=== PATIENT | female | born 1980 | race American Indian/Alaskan Native ===

== ENCOUNTER 2020-04-30 08:28 | Observation (INO) | payer MEDICAID ==
[2020-04-30 09:52] LABS: Hematocrit 27.8 % (30.3-42.9); Hemoglobin 9.3 gm/dl (10.1-14.3); Mean Corpuscular HGB Conc 33 % (30-34); Mean Corpuscular Volume 82 fl (79-97); Platelet Count 301 K/mm3 (140-440); Red Blood Count 3.41 M/mm3 (3.65-5.03)
[2020-04-30 09:55] LABS: Red Cell Distribution Width 20.2 % (13.2-15.2)
[2020-04-30 10:08] LABS: Creatine Kinase MB 2.5 ng/mL (0.0-4.0)
[2020-04-30 10:09] LABS: Blood Urea Nitrogen 15 mg/dL (7-17); Calcium 8.8 mg/dL (8.4-10.2); Hemolysis Index 3
--- NOTE | 2020-04-30 10:10 | XRay Report ---
CHEST 1 VIEW INDICATION: Dyspnea COMPARISON: None FINDINGS: SUPPORT DEVICES: None. HEART / MEDIASTINUM: No significant abnormality. LUNGS / PLEURA: Patchy parenchymal changes present both lower lobes small bilateral pleural effusions No pneumothorax. ADDITIONAL FINDINGS: IMPRESSION: 1. Patchy parenchymal changes lower lobes with bilateral pleural effusions, subsegmental atelectasis is a concern Signer Name: Terry Pina MD Signed: 04/30/2020 10:06 AM Workstation Name: [id number]
[2020-04-30 10:17] LABS: BUN/Creatinine Ratio 25
[2020-04-30 10:45] LABS: INR > 17.67 (0.87-1.13); Partial Thromboplastin Time > 240.0 Sec. (24.2-36.6)
[2020-04-30 10:48] LABS: Total Cells Counted 100
[2020-04-30 10:49] LABS: Anisocytosis 1+; Basophils % (Manual) 0 % (0.0-1.8); Platelet Estimate Consistent w Auto
--- NOTE | 2020-04-30 11:14 | Cat Scan Report ---
CTA CHEST WITH IV CONTRAST INDICATION / CLINICAL INFORMATION: MAIN. TECHNIQUE: Axial CT images were obtained through the chest after injection of 100 cc Omnipaque 350 milligrams pe rcent IV contrast. 3 plane MIP and/or 3D reconstructions were produced. All CT scans at this location are performed using CT dose reduction for ALARA by means of automated exposure control. COMPARISON: None available. FINDINGS: PULMONARY ARTERIES: No pulmonary emboli. THORACIC AORTA: No significant abnormality. HEART: No significant abnormality. CORONARY ARTERIES: No significant calcification. PLEURA: No pleural effusion. Bilateral pleural effusions [id number] in size: No significant ad enopathy. LUNGS: Interstitium is prominent with patchy airspace changes right lung more severe effected than le ft ADDITIONAL FINDINGS: None. UPPER ABDOMEN: No acute findings. SKELETAL STRUCTURES: No significant osseous abnormality. IMPRESSION: 1. No CT evidence for pulmonary embolism. 2. Patchy parenchymal changes both lungs right greater than left with increased interstitium with ass ociated bilateral pleural effusions, pulmonary edema is a concern. Inflammatory process can have a si milar appearance. Signer Name: Terry Pina MD Signed: 04/30/2020 11:09 AM Workstation Name: [id number]
--- NOTE | 2020-04-30 11:20 | Emergency Department Report ---
ED General Adult HPI - General Chief complaint: Dyspnea/Respdistress Stated complaint: DIFFICULTY BREATING Source: patient Mode of arrival: Ambulatory Limitations: No Limitations - History of Present Illness Initial comments: This is a very pleasant 39-year-old lady who had a 1 week ago. She describes her as uneventful and without complication. She states that on Thursday she began to get short of breath and experienced anterior non- radiating nonpleuritic chest tightness. She has not been coughing. She has noticed for the past several days that her legs have been swollen. She states that she felt like there was swelling of her "hips" in the hospital. Over the weekend she has developed substantial pedal edema. She does not complain of leg pain per se or any asymmetrical swelling. She has no personal history of VTE or family history thereof. -: Gradual Location: chest Radiation: non-radiation Quality: other (Tightness) Consistency: intermittent Improves with: none Worsens with: none Associated Symptoms: denies other symptoms, shortness of breath Treatments Prior to Arrival: none - Related Data Allergies Allergy/AdvReac Type Severity Reaction Status Date / Time No Known Allergies Allergy Unverified 04/30/20 12:41 ED Review of Systems ROS: Stated complaint: DIFFICULTY BREATING Other details as noted in HPI Constitutional: denies: chills, fever Eyes: denies: eye pain, eye discharge, vision change ENT: denies: ear pain, throat pain Respiratory: shortness of breath. denies: cough, wheezing Cardiovascular: chest pain. denies: palpitations Endocrine: no symptoms reported Gastrointestinal: denies: abdominal pain, nausea, diarrhea Genitourinary: denies: urgency, dysuria, discharge Musculoskeletal: denies: back pain, joint swelling, arthralgia Skin: denies: rash, lesions Neurological: denies: headache, weakness, paresthesias Psychiatric: denies: anxiety, depression Hematological/Lymphatic: denies: easy bleeding, easy bruising ED Past Medical Hx - Past Medical History Previous Medical History?: Yes Hx Asthma: Yes - Surgical History Additional Surgical History: x2 without complication. - Social History Substance Use Type: None ED Physical Exam - General Limitations: No Limitations General appearance: alert, in no apparent distress - Head Head exam: Present: atraumatic, normocephalic - Eye Eye exam: Present: normal appearance. Absent: scleral icterus - ENT ENT exam: Present: mucous membranes moist - Neck Neck exam: Present: normal inspection. Absent: tenderness, meningismus - Respiratory Respiratory exam: Present: normal lung sounds bilaterally. Absent: respiratory distress - Cardiovascular Cardiovascular Exam: Present: regular rate, normal rhythm. Absent: systolic mur mur, diastolic murmur, rubs, gallop - GI/Abdominal GI/Abdominal exam: Present: soft, normal bowel sounds. Absent: tenderness, guarding, rebound, rigid - Extremities Exam Extremities exam: Present: normal capillary refill, other (2-3+ pedal edema). Absent: calf tenderness - Back Exam Back exam: Present: normal inspection - Neurological Exam Neurological exam: Present: alert, oriented X3, CN II-XII intact. Absent: motor sensory deficit - Psychiatric Psychiatric exam: Present: normal affect, normal mood - Skin Skin exam: Present: warm, dry, intact, normal color. Absent: rash ED Course Vital Signs 04/30/20 04/30/20 08:33 12:00 Temperature 98.8 F Pulse Rate 54 L Respiratory 20 16 Rate Blood Pressure 144/73 [Right] O2 Sat by Pulse 98 Oximetry - Reevaluation(s) Reevaluation #1: On repeat examination patient's pulse oximetry is 99% on room air. She states that she is breathing better after Lasix. Her blood pressure is normal. I have ordered an echocardiogram on the patient and a cardiology consultation. I am going to place the patient on COVID precautions and obtain associated laboratory database. I do not think it is at all likely that the patient has COVID. This is a pure precaution. 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 I have discussed the case with Dr. Tobin. The patient is admitted to the ostal service. 04/30/20 14:07 ED Medical Decision Making - Lab Data Result diagrams: 04/30/20 09:19 04/30/20 12:35 Critical care attestation.: If time is entered above; I have spent that time in minutes in the direct care of this critically ill patient, excluding procedure time. ED Disposition Clinical Impression: cardiomyopathy, Status post Congestive heart failure Qualifiers: Heart failure type: combined systolic and diastolic Heart failure chronicity: a cute Qualified Code(s): I50.41 - Acute combined systolic (congestive) and d iastolic (congestive) heart failure Anemia Qualifiers: Anemia type: unspecified type Qualified Code(s): D64.9 - Anemia, unspecified Chest pain Qualifiers: Chest pain type: unspecified Qualified Code(s): R07.9 - Chest pain, unspecified Disposition: OP ADMIT IP TO THIS HOSP Is pt being admited?: Yes Does the pt Need Aspirin: Yes Condition: Stable Instructions: Chest Pain (ED) Referrals: PRIMARY CARE,MD [Primary Care Provider] - 3-5 Days Time of Disposition: 14:10
[2020-04-30 11:40] LABS: INR 1.02 (0.87-1.13)
[2020-04-30 11:41] LABS: Partial Thromboplastin Time 28.9 Sec. (24.2-36.6)
[2020-04-30] MEDS ORDERED: FUROSEMIDE 40 MG/4 ML INJ IV ONE (12:06)
[2020-04-30 13:24] LABS: Creatine Kinase MB 2.3 ng/mL (0.0-4.0)
[2020-04-30 13:26] LABS: Alanine Aminotransferase 99 units/L (7-56); Albumin 3.1 g/dL (3.9-5)
[2020-04-30 13:38] LABS: Bilirubin,Direct < 0.2 mg/dL (0-0.2)
[2020-04-30] MEDS ORDERED: ASPIRIN 325 MG TAB ONE (16:46)
[2020-04-30] MEDS: ASPIRIN 325 MG TAB PO SCH (16:50)
[2020-04-30] MEDS ORDERED: ONDANSETRON 4 MG/2 ML INJ IV PRN (22:50)
[2020-04-30] MEDS ORDERED: ACETAMINOPHEN 325 MG TAB PO PRN (22:50)
[2020-04-30] MEDS ORDERED: HYDROmorphone 1 MG/1 ML INJ IV PRN (22:50)
[2020-04-30] MEDS ORDERED: oxyCODONE /ACETAMINOPHEN 5-325MG TAB PO PRN (22:50)
--- NOTE | 2020-04-30 22:50 | History and Physical Report ---
History of Present Illness Date of examination: 04/30/20 Date of admission: 04/30/20 14:12 Chief complaint: Shortness of breath for 2 days History of present illness: 39-year-old female with no significant past medical history except for asthma comes in for increasing shortness of breath since 2 days. Patient had a C- section 1 week ago.. Patient has dyspnea on minimal exertion and has orthopnea. No past medical history of hypertension or CHF. No fever or chills. Patient states that she has swelling of the legs for the past 1 week and increased weight gain secondary to fluid retention. No fever or chills. No exposure to coronavirus. - Past Medical History Previous Medical History?: Yes Hx Asthma: Yes - Surgical History Additional Surgical History: x2 without complication. - Social History Substance Use Type: None -family history Htn Review of Systems ROS: Stated complaint: DIFFICULTY BREATING Other details as noted in HPI Constitutional: denies: chills, fever Eyes: denies: eye pain, eye discharge, vision change ENT: denies: ear pain, throat pain Respiratory: shortness of breath on minimal exertion and orthopnea.. denies: cough, wheezing Cardiovascular: chest pain. denies: palpitations Endocrine: no symptoms reported Gastrointestinal: denies: abdominal pain, nausea, diarrhea Genitourinary: denies: urgency, dysuria, discharge Musculoskeletal: denies: back pain, joint swelling, arthralgia Skin: denies: rash, lesions Neurological: denies: headache, weakness, paresthesias Psychiatric: denies: anxiety, depression Hematological/Lymphatic: denies: easy bleeding, easy bruising Medications and Allergies Allergies Allergy/AdvReac Type Severity Reaction Status Date / Time No Known Allergies Allergy Unverified 04/30/20 12:41 Active Meds: Active Medications Aspirin (Aspirin) 325 mg PO QDAY ANIRUDH Last Admin: 04/30/20 16:50 Dose: 325 mg Documented by: Exam - Constitutional Vitals: Temp Pulse Resp BP Pulse Ox 98.5 F 65 18 128/65 100 04/30/20 13:00 04/30/20 14:01 04/30/20 20:37 04/30/20 14:01 04/30/20 14:01 General appearance: Present: mild distress, well-nourished - EENT Eyes: Present: PERRL ENT: hearing intact, clear oral mucosa - Neck Neck: Present: supple, normal ROM - Respiratory Respiratory effort: normal Respiratory: bilateral: CTA, rales (Basal), rhonchi - Cardiovascular Heart rate: 98 Rhythm: regular Heart Sounds: Present: S1 & S2. Absent: rub, click - Extremities Extremities: pulses symmetrical Extremity abnormal: other (About 2-3+ pedal edema present) Peripheral Pulses: within normal limits - Abdominal General gastrointestinal: Present: soft, non-tender, non-distended, normal bowel sounds Female genitourinary: Present: normal - Integumentary Integumentary: Present: clear, warm, dry - Musculoskeletal Musculoskeletal: gait normal, strength equal bilaterally - Psychiatric Psychiatric: appropriate mood/affect, intact judgment & insight - Neurologic Neurologic: CNII-XII intact, moves all extremities - Allied Health Allied health notes reviewed: nursing, case management HEART Score - HEART Score History: Moderately suspicious Risk factors: No known risk factors Troponin: Troponin T < 0.010 ng/mL (0.00-0.029) 04/30/20 12:35 Troponin: < normal limit - Critical Actions Critical Actions: 4-6 pts:12-16.6% risk of adverse cardiac event. Should be admitted Results - Labs CBC & Chem 7: 04/30/20 09:19 04/30/20 12:35 Labs: Laboratory Last Values WBC 7.3 K/mm3 (4.5-11.0) 04/30/20 09:19 RBC 3.41 M/mm3 (3.65-5.03) L 04/30/20 09:19 Hgb 9.3 gm/dl (10.1-14.3) L 04/30/20 09:19 Hct 27.8 % (30.3-42.9) L 04/30/20 09:19 MCV 82 fl (79-97) 04/30/20 09:19 MCH 27 pg (28-32) L 04/30/20 09:19 MCHC 33 % (30-34) 04/30/20 09:19 RDW 20.2 % (13.2-15.2) H 04/30/20 09:19 Plt Count 301 K/mm3 (140-440) 04/30/20 09:19 Add Manual Diff Complete 04/30/20 09:19 Total Counted 100 04/30/20 09:19 Seg Neuts % (Manual) 86.0 % (40.0-70.0) H 04/30/20 09:19 Band Neutrophils % 0 % 04/30/20 09:19 Lymphocytes % (Manual) 9.0 % (13.4-35.0) L 04/30/20 09:19 Reactive Lymphs % (Man) 0 % 04/30/20 09:19 Monocytes % (Manual) 2.0 % (0.0-7.3) 04/30/20 09:19 Eosinophils % (Manual) 3.0 % (0.0-4.3) 04/30/20 09:19 Basophils % (Manual) 0 % (0.0-1.8) 04/30/20 09:19 Metamyelocytes % 0 % 04/30/20 09:19 Myelocytes % 0 % 04/30/20 09:19 Promyelocytes % 0 % 04/30/20 09:19 Blast Cells % 0 % 04/30/20 09:19 Nucleated RBC % Not Reportable 04/30/20 09:19 Seg Neutrophils # Man 6.3 K/mm3 (1.8-7.7) 04/30/20 09:19 Band Neutrophils # 0.0 K/mm3 04/30/20 09:19 Lymphocytes # (Manual) 0.7 K/mm3 (1.2-5.4) L 04/30/20 09:19 Abs React Lymphs (Man) 0.0 K/mm3 04/30/20 09:19 Monocytes # (Manual) 0.1 K/mm3 (0.0-0.8) 04/30/20 09:19 Eosinophils # (Manual) 0.2 K/mm3 (0.0-0.4) 04/30/20 09:19 Basophils # (Manual) 0.0 K/mm3 (0.0-0.1) 04/30/20 09:19 Metamyelocytes # 0.0 K/mm3 04/30/20 09:19 Myelocytes # 0.0 K/mm3 04/30/20 09:19 Promyelocytes # 0.0 K/mm3 04/30/20 09:19 Blast Cells # 0.0 K/mm3 04/30/20 09:19 WBC Morphology Not Reportable 04/30/20 09:19 Hypersegmented Neuts Not Reportable 04/30/20 09:19 Hyposegmented Neuts Not Reportable 04/30/20 09:19 Hypogranular Neuts Not Reportable 04/30/20 09:19 Smudge Cells Not Reportable 04/30/20 09:19 Toxic Granulation Not Reportable 04/30/20 09:19 Toxic Vacuolation Not Reportable 04/30/20 09:19 Dohle Bodies Not Reportable 04/30/20 09:19 Pelger-Huet Anomaly Not Reportable 04/30/20 09:19 Trina Rods Not Reportable 04/30/20 09:19 Platelet Estimate Consistent w auto 04/30/20 09:19 Clumped Platelets Not Reportable 04/30/20 09:19 Plt Clumps, EDTA Not Reportable 04/30/20 09:19 Large Platelets Not Reportable 04/30/20 09:19 Giant Platelets Not Reportable 04/30/20 09:19 Platelet Satelliting Not Reportable 04/30/20 09:19 Plt Morphology Comment Not Reportable 04/30/20 09:19 RBC Morphology Not Reportable 04/30/20 09:19 Dimorphic RBCs Not Reportable 04/30/20 09:19 Polychromasia Few 04/30/20 09:19 Hypochromasia Not Reportable 04/30/20 09:19 Poikilocytosis Not Reportable 04/30/20 09:19 Anisocytosis 1+ 04/30/20 09:19 Microcytosis Not Reportable 04/30/20 09:19 Macrocytosis Not Reportable 04/30/20 09:19 Spherocytes Not Reportable 04/30/20 09:19 Pappenheimer Bodies Not Reportable 04/30/20 09:19 Sickle Cells Not Reportable 04/30/20 09:19 Target Cells Not Reportable 04/30/20 09:19 Tear Drop Cells Not Reportable 04/30/20 09:19 Ovalocytes Not Reportable 04/30/20 09:19 Helmet Cells Not Reportable 04/30/20 09:19 Chahal-Paul Bodies Not Reportable 04/30/20 09:19 [place] Rings Not Reportable 04/30/20 09:19 [place] Cells Not Reportable 04/30/20 09:19 Bite Cells Not Reportable 04/30/20 09:19 Crenated Cell Not Reportable 04/30/20 09:19 Elliptocytes Not Reportable 04/30/20 09:19 Acanthocytes (Spur) Not Reportable 04/30/20 09:19 Rouleaux Not Reportable 04/30/20 09:19 Hemoglobin C Crystals Not Reportable 04/30/20 09:19 Schistocytes Not Reportable 04/30/20 09:19 Malaria parasites Not Reportable 04/30/20 09:19 Emil Bodies Not Reportable 04/30/20 09:19 Hem Pathologist Commnt No 04/30/20 09:19 PT 13.5 Sec. (12.2-14.9) 04/30/20 10:54 INR 1.02 (0.87-1.13) 04/30/20 10:54 APTT 28.9 Sec. (24.2-36.6) 04/30/20 10:54 D-Dimer 3888.41 ng/mlDDU (0-234) H 04/30/20 12:35 Sodium 140 mmol/L (137-145) 04/30/20 09:19 Potassium 4.4 mmol/L (3.6-5.0) 04/30/20 09:19 Chloride 106.9 mmol/L (98-107) 04/30/20 09:19 Carbon Dioxide 18 mmol/L (22-30) L 04/30/20 09:19 Anion Gap 20 mmol/L 04/30/20 09:19 BUN 15 mg/dL (7-17) 04/30/20 09:19 Creatinine 0.6 mg/dL (0.6-1.2) 04/30/20 09:19 Estimated GFR > 60 ml/min 04/30/20 09:19 BUN/Creatinine Ratio 25 % 04/30/20 09:19 Glucose 83 mg/dL (65-100) 04/30/20 12:35 Calcium 8.8 mg/dL (8.4-10.2) 04/30/20 09:19 Magnesium 2.20 mg/dL (1.7-2.3) 04/30/20 12:35 Ferritin 31.5 ng/mL (10.0-200.0) 04/30/20 12:35 Total Bilirubin 0.20 mg/dL (0.1-1.2) 04/30/20 12:35 Direct Bilirubin < 0.2 mg/dL (0-0.2) 04/30/20 12:35 Indirect Bilirubin 0.0 mg/dL 04/30/20 12:35 AST 54 units/L (5-40) H 04/30/20 12:35 ALT 99 units/L (7-56) H 04/30/20 12:35 Alkaline Phosphatase 119 units/L (35-129) 04/30/20 12:35 Lactate Dehydrogenase 450 units/L (91-180) H 04/30/20 12:35 Total Creatine Kinase 114 units/L (30-135) 04/30/20 12:35 CK-MB (CK-2) 2.3 ng/mL (0.0-4.0) 04/30/20 12:35 CK-MB (CK-2) Rel Index 2.0 (0-4) 04/30/20 12:35 Troponin T < 0.010 ng/mL (0.00-0.029) 04/30/20 12:35 C-Reactive Protein 4.60 mg/dL (0.00-1.30) H 04/30/20 12:35 NT-Pro-B Natriuret Pep 537.9 pg/mL (0-450) H 04/30/20 09:19 Total Protein 6.4 g/dL (6.3-8.2) 04/30/20 12:35 Albumin 3.1 g/dL (3.9-5) L 04/30/20 12:35 Albumin/Globulin Ratio 0.9 % 04/30/20 12:35 Procalcitonin < 0.05 ng/mL (<0.15) 04/30/20 12:35 Blood Type A POSITIVE 04/30/20 09:15 Antibody Screen Negative 04/30/20 09:15 Short CBC 04/30/20 Range/Units 09:19 WBC 7.3 (4.5-11.0) K/mm3 Hgb 9.3 L (10.1-14.3) gm/dl Hct 27.8 L (30.3-42.9) % Plt Count 301 (140-440) K/mm3 BMP 04/30/20 04/30/20 09:19 12:35 Sodium 140 Potassium 4.4 Chloride 106.9 Carbon Dioxide 18 L BUN 15 Creatinine 0.6 Glucose 82 83 Calcium 8.8 Cardiac Enzymes 04/30/20 04/30/20 04/30/20 Range/Units 09:19 09:19 12:35 Total Creatine Kinase 128 114 (30-135) units/L CK-MB (CK-2) 2.5 2.3 (0.0-4.0) ng/mL Troponin T < 0.010 < 0.010 (0.00-0.029) ng/mL Liver Function 04/30/20 Range/Units 12:35 Total Bilirubin 0.20 (0.1-1.2) mg/dL Direct Bilirubin < 0.2 (0-0.2) mg/dL AST 54 H (5-40) units/L ALT 99 H (7-56) units/L Alkaline Phosphatase 119 (35-129) units/L Albumin 3.1 L (3.9-5) g/dL - Imaging and Cardiology EKG: report reviewed Imaging and Cardiology: CXR IMPRESSION: 1. Patchy parenchymal changes lower lobes with bilateral pleural effusions, subsegmental atelectasis is a concern Signer Name: Terry Pina MD Signed: 04/30/2020 10:06 AM CTA IMPRESSION: 1. No CT evidence for pulmonary embolism. 2. Patchy parenchymal changes both lungs right greater than left with increased interstitium with associated bilateral pleural effusions, pulmonary edema is a concern. Inflammatory process can have a similar appearance. Chao/IV: IV Catheter Type [Left Peripheral IV Antecubital] Assessment and Plan Advance Directives: Yes (Full code) Plan of care discussed with patient/family: Yes - Patient Problems (1) cardiomyopathy Current Visit: Yes Status: Acute Plan to address problem: Echocardiogram done report is pending Possible post cardiomyopathy Ejection fraction percentage is pending (2) Acute exacerbation of CHF (congestive heart failure) Current Visit: Yes Status: Acute Qualifiers: Heart failure type: combined systolic and diastolic Qualified Code(s): I50.43 - Acute on chronic combined systolic (congestive) and diastolic (congestive) heart failure Plan to address problem: Clinically patient has CHF exacerbation and it is new onset Patient started on IV Lasix Echocardiogram done Cardiology consult (3) Anemia Current Visit: Yes Status: Chronic Qualifiers: Anemia type: unspecified type Qualified Code(s): D64.9 - Anemia, unspecified Plan to address problem: Anemia work-up (4) Elevated d-dimer Current Visit: Yes Status: Acute Plan to address problem: Weight-based Lovenox 40 mg every 12 (5) Malnutrition Current Visit: Yes Status: Chronic Qualifiers: Protein-calorie malnutrition severity: moderate Plan to address problem: Dietary supplements ordered (6) Transaminitis Current Visit: Yes Status: Acute Plan to address problem: Possibly secondary to hepatic congestion Check hepatitis profile (7) Person under investigation for COVID-19 Current Visit: Yes Status: Acute Plan to address problem: Coronavirus PCR ordered even though it is unlikely (8) DVT prophylaxis Current Visit: Yes Status: Acute Plan to address problem: Patient on Lovenox and GI prophylaxis
[2020-04-30] MEDS ORDERED: POTASSIUM CHLORIDE ER 20 MEQ TAB PO ONE (22:52)
[2020-05-01] MEDS: FUROSEMIDE 40 MG/4 ML INJ IV SCH ×2 (05:25→17:20)
[2020-05-01 06:20] LABS: Basophils % (Auto) 0.5 % (0.0-1.8); Eosinophils # (Auto) 0.2 K/mm3 (0.0-0.4); Eosinophils % (Auto) 3.9 % (0.0-4.3); Hematocrit 28.1 % (30.3-42.9); Hemoglobin 9.3 gm/dl (10.1-14.3); Lymphocytes # (Auto) 1.6 K/mm3 (1.2-5.4); Lymphocytes % (Auto) 24.7 % (13.4-35.0); Mean Corpuscular HGB Conc 33 % (30-34); Mean Corpuscular Volume 82 fl (79-97); Monocytes # (Auto) 0.4 K/mm3 (0.0-0.8); Monocytes % (Auto) 6.8 % (0.0-7.3); Platelet Count 343 K/mm3 (140-440); Red Blood Count 3.45 M/mm3 (3.65-5.03)
[2020-05-01 06:21] LABS: Red Cell Distribution Width 20.1 % (13.2-15.2)
[2020-05-01] MEDS: ENOXAPARIN 40 MG/0.4 ML INJ SUB-Q SCH ×2 (06:34→21:25)
[2020-05-01 06:45] LABS: Alanine Aminotransferase 94 units/L (7-56); Albumin 3.1 g/dL (3.9-5); Blood Urea Nitrogen 15 mg/dL (7-17); Calcium 8.6 mg/dL (8.4-10.2); Hemolysis Index 14
[2020-05-01 07:21] LABS: BUN/Creatinine Ratio 21
--- NOTE | 2020-05-01 08:33 | Progress Note ---
Assessment and Plan Assessment and plan: cardiomyopathy Echocardiogram done report is pending Possible post cardiomyopathy Ejection fraction percentage is pending Acute exacerbation of CHF (congestive heart failure) Clinically patient has CHF exacerbation and it is new onset Cont. IV Lasix Echocardiogram done Cardiology consulted Anemia Anemia work-up Elevated d-dimer Weight-based Lovenox 40 mg every 12 Malnutrition Dietary supplements ordered Transaminitis Possibly secondary to hepatic congestion Check hepatitis profile Person under investigation for COVID-19 Coronavirus PCR ordered even though it is unlikely DVT prophylaxis Patient on Lovenox and GI prophylaxis History Interval history: No new issues overnight Hospitalist Physical - Constitutional Vitals: Temp Pulse Resp BP Pulse Ox 98.0 F 68 18 136/63 98 05/01/20 05:56 05/01/20 05:56 05/01/20 05:56 05/01/20 05:56 05/01/20 05:56 General appearance: Present: mild distress, well-nourished - EENT Eyes: Present: PERRL, EOM intact ENT: hearing intact, clear oral mucosa, dentition normal - Neck Neck: Present: supple, normal ROM - Respiratory Respiratory effort: normal Respiratory: bilateral: CTA - Cardiovascular Rhythm: regular Heart Sounds: Present: S1 & S2. Absent: gallop, rub - Extremities Extremities: no ischemia, No edema, Full ROM - Abdominal General gastrointestinal: soft, non-tender, non-distended, normal bowel sounds - Integumentary Integumentary: Present: clear, warm, dry - Neurologic Neurologic: CNII-XII intact, moves all extremities HEART Score - HEART Score Risk factors: No known risk factors Troponin: Troponin T < 0.010 ng/mL (0.00-0.029) 04/30/20 12:35 Troponin: < normal limit - Critical Actions Critical Actions: 4-6 pts:12-16.6% risk of adverse cardiac event. Should be admitted Results - Labs CBC & Chem 7: 05/01/20 05:28 05/01/20 05:28 Labs: Laboratory Last Values WBC 6.3 K/mm3 (4.5-11.0) 05/01/20 05:28 RBC 3.45 M/mm3 (3.65-5.03) L 05/01/20 05:28 Hgb 9.3 gm/dl (10.1-14.3) L 05/01/20 05:28 Hct 28.1 % (30.3-42.9) L 05/01/20 05:28 MCV 82 fl (79-97) 05/01/20 05:28 MCH 27 pg (28-32) L 05/01/20 05:28 MCHC 33 % (30-34) 05/01/20 05:28 RDW 20.1 % (13.2-15.2) H 05/01/20 05:28 Plt Count 343 K/mm3 (140-440) 05/01/20 05:28 Lymph % (Auto) 24.7 % (13.4-35.0) 05/01/20 05:28 Leslie % (Auto) 6.8 % (0.0-7.3) 05/01/20 05:28 Eos % (Auto) 3.9 % (0.0-4.3) 05/01/20 05:28 Baso % (Auto) 0.5 % (0.0-1.8) 05/01/20 05:28 Lymph # (Auto) 1.6 K/mm3 (1.2-5.4) 05/01/20 05:28 Leslie # (Auto) 0.4 K/mm3 (0.0-0.8) 05/01/20 05:28 Eos # (Auto) 0.2 K/mm3 (0.0-0.4) 05/01/20 05:28 Baso # (Auto) 0.0 K/mm3 (0.0-0.1) 05/01/20 05:28 Add Manual Diff Complete 04/30/20 09:19 Total Counted 100 04/30/20 09:19 Seg Neutrophils % 64.1 % (40.0-70.0) 05/01/20 05:28 Seg Neuts % (Manual) 86.0 % (40.0-70.0) H 04/30/20 09:19 Band Neutrophils % 0 % 04/30/20 09:19 Lymphocytes % (Manual) 9.0 % (13.4-35.0) L 04/30/20 09:19 Reactive Lymphs % (Man) 0 % 04/30/20 09:19 Monocytes % (Manual) 2.0 % (0.0-7.3) 04/30/20 09:19 Eosinophils % (Manual) 3.0 % (0.0-4.3) 04/30/20 09:19 Basophils % (Manual) 0 % (0.0-1.8) 04/30/20 09:19 Metamyelocytes % 0 % 04/30/20 09:19 Myelocytes % 0 % 04/30/20 09:19 Promyelocytes % 0 % 04/30/20 09:19 Blast Cells % 0 % 04/30/20 09:19 Nucleated RBC % Not Reportable 04/30/20 09:19 Seg Neutrophils # 4.1 K/mm3 (1.8-7.7) 05/01/20 05:28 Seg Neutrophils # Man 6.3 K/mm3 (1.8-7.7) 04/30/20 09:19 Band Neutrophils # 0.0 K/mm3 04/30/20 09:19 Lymphocytes # (Manual) 0.7 K/mm3 (1.2-5.4) L 04/30/20 09:19 Abs React Lymphs (Man) 0.0 K/mm3 04/30/20 09:19 Monocytes # (Manual) 0.1 K/mm3 (0.0-0.8) 04/30/20 09:19 Eosinophils # (Manual) 0.2 K/mm3 (0.0-0.4) 04/30/20 09:19 Basophils # (Manual) 0.0 K/mm3 (0.0-0.1) 04/30/20 09:19 Metamyelocytes # 0.0 K/mm3 04/30/20 09:19 Myelocytes # 0.0 K/mm3 04/30/20 09:19 Promyelocytes # 0.0 K/mm3 04/30/20 09:19 Blast Cells # 0.0 K/mm3 04/30/20 09:19 WBC Morphology Not Reportable 04/30/20 09:19 Hypersegmented Neuts Not Reportable 04/30/20 09:19 Hyposegmented Neuts Not Reportable 04/30/20 09:19 Hypogranular Neuts Not Reportable 04/30/20 09:19 Smudge Cells Not Reportable 04/30/20 09:19 Toxic Granulation Not Reportable 04/30/20 09:19 Toxic Vacuolation Not Reportable 04/30/20 09:19 Dohle Bodies Not Reportable 04/30/20 09:19 Pelger-Huet Anomaly Not Reportable 04/30/20 09:19 Trina Rods Not Reportable 04/30/20 09:19 Platelet Estimate Consistent w auto 04/30/20 09:19 Clumped Platelets Not Reportable 04/30/20 09:19 Plt Clumps, EDTA Not Reportable 04/30/20 09:19 Large Platelets Not Reportable 04/30/20 09:19 Giant Platelets Not Reportable 04/30/20 09:19 Platelet Satelliting Not Reportable 04/30/20 09:19 Plt Morphology Comment Not Reportable 04/30/20 09:19 RBC Morphology Not Reportable 04/30/20 09:19 Dimorphic RBCs Not Reportable 04/30/20 09:19 Polychromasia Few 04/30/20 09:19 Hypochromasia Not Reportable 04/30/20 09:19 Poikilocytosis Not Reportable 04/30/20 09:19 Anisocytosis 1+ 04/30/20 09:19 Microcytosis Not Reportable 04/30/20 09:19 Macrocytosis Not Reportable 04/30/20 09:19 Spherocytes Not Reportable 04/30/20 09:19 Pappenheimer Bodies Not Reportable 04/30/20 09:19 Sickle Cells Not Reportable 04/30/20 09:19 Target Cells Not Reportable 04/30/20 09:19 Tear Drop Cells Not Reportable 04/30/20 09:19 Ovalocytes Not Reportable 04/30/20 09:19 Helmet Cells Not Reportable 04/30/20 09:19 [place] Bodies Not Reportable 04/30/20 09:19 [place] Rings Not Reportable 04/30/20 09:19 Bassem Cells Not Reportable 04/30/20 09:19 Bite Cells Not Reportable 04/30/20 09:19 Crenated Cell Not Reportable 04/30/20 09:19 Elliptocytes Not Reportable 04/30/20 09:19 Acanthocytes (Spur) Not Reportable 04/30/20 09:19 Rouleaux Not Reportable 04/30/20 09:19 Hemoglobin C Crystals Not Reportable 04/30/20 09:19 Schistocytes Not Reportable 04/30/20 09:19 Malaria parasites Not Reportable 04/30/20 09:19 Emil Bodies Not Reportable 04/30/20 09:19 Hem Pathologist Commnt No 04/30/20 09:19 PT 13.5 Sec. (12.2-14.9) 04/30/20 10:54 INR 1.02 (0.87-1.13) 04/30/20 10:54 APTT 28.9 Sec. (24.2-36.6) 04/30/20 10:54 D-Dimer 3888.41 ng/mlDDU (0-234) H 04/30/20 12:35 Sodium 144 mmol/L (137-145) 05/01/20 05:28 Potassium 4.0 mmol/L (3.6-5.0) 05/01/20 05:28 Chloride 106.4 mmol/L (98-107) 05/01/20 05:28 Carbon Dioxide 22 mmol/L (22-30) 05/01/20 05:28 Anion Gap 20 mmol/L 05/01/20 05:28 BUN 15 mg/dL (7-17) 05/01/20 05:28 Creatinine 0.7 mg/dL (0.6-1.2) 05/01/20 05:28 Estimated GFR > 60 ml/min 05/01/20 05:28 BUN/Creatinine Ratio 21 % 05/01/20 05:28 Glucose 90 mg/dL (65-100) 05/01/20 05:28 Hemoglobin A1c 5.5 % (4-6) 05/01/20 05:28 Calcium 8.6 mg/dL (8.4-10.2) 05/01/20 05:28 Magnesium 2.20 mg/dL (1.7-2.3) 04/30/20 12:35 Ferritin 31.5 ng/mL (10.0-200.0) 04/30/20 12:35 Total Bilirubin 0.20 mg/dL (0.1-1.2) 05/01/20 05:28 Direct Bilirubin < 0.2 mg/dL (0-0.2) 04/30/20 12:35 Indirect Bilirubin 0.0 mg/dL 04/30/20 12:35 AST 44 units/L (5-40) H 05/01/20 05:28 ALT 94 units/L (7-56) H 05/01/20 05:28 Alkaline Phosphatase 110 units/L (35-129) 05/01/20 05:28 Lactate Dehydrogenase 450 units/L (91-180) H 04/30/20 12:35 Total Creatine Kinase 114 units/L (30-135) 04/30/20 12:35 CK-MB (CK-2) 2.3 ng/mL (0.0-4.0) 04/30/20 12:35 CK-MB (CK-2) Rel Index 2.0 (0-4) 04/30/20 12:35 Troponin T < 0.010 ng/mL (0.00-0.029) 04/30/20 12:35 C-Reactive Protein 4.60 mg/dL (0.00-1.30) H 04/30/20 12:35 NT-Pro-B Natriuret Pep 537.9 pg/mL (0-450) H 04/30/20 09:19 Total Protein 6.2 g/dL (6.3-8.2) L 05/01/20 05:28 Albumin 3.1 g/dL (3.9-5) L 05/01/20 05:28 Albumin/Globulin Ratio 1.0 % 05/01/20 05:28 Procalcitonin < 0.05 ng/mL (<0.15) 04/30/20 12:35 Blood Type A POSITIVE 04/30/20 09:15 Antibody Screen Negative 04/30/20 09:15 Chao/IV: Voiding Method Toilet IV Catheter Type [Left Peripheral IV Antecubital] Active Medications - Current Medications Current Medications: Generic Name Dose Route Start Last Admin Trade Name Freq PRN Reason Stop Dose Admin Acetaminophen 650 mg 04/30/20 22:50 Tylenol PO Q4H PRN Pain MILD(1-3)/Fever >100.5/STOVALL Aspirin 325 mg 04/30/20 15:00 04/30/20 16:50 Aspirin PO 325 mg QDAY ANIRUDH Administration Enoxaparin Sodium 40 mg 05/01/20 07:00 05/01/20 06:34 Enoxaparin SUB-Q 40 mg Q12HR ANIRUDH Administration Protocol Famotidine 20 mg 05/01/20 10:00 Pepcid PO BID ANIRUDH Furosemide 40 mg 05/01/20 06:00 05/01/20 05:25 Lasix IV 40 mg 0600,1800 ANIRUDH Administration Hydromorphone HCl 0.5 mg 04/30/20 22:50 Dilaudid IV Q3H PRN Pain , Severe (7-10) Ondansetron HCl 4 mg 04/30/20 22:50 Zofran IV Q8H PRN Nausea And Vomiting Oxycodone/Acetaminophen 1 tab 04/30/20 22:50 Percocet 5/325 PO Q6H PRN Pain, Moderate (4-6) Sodium Chloride 10 ml 05/01/20 10:00 Sodium Chloride Flush Syringe 10 Ml IV BID ANIRUDH Sodium Chloride 10 ml 04/30/20 22:50 Sodium Chloride Flush Syringe 10 Ml IV PRN PRN LINE FLUSH
[2020-05-01 08:58] LABS: Hepatitis B Surface Antigen Non-Reactive (Negative); Hepatitis C Virus Antibody Non-Reactive (NonReactive)
[2020-05-01 09:10] LABS: % Iron Saturation 7.14 %
[2020-05-01] MEDS: ASPIRIN 325 MG TAB PO SCH (10:01)
[2020-05-01] MEDS: FAMOTIDINE 20 MG TAB PO SCH ×2 (10:01→21:25)
--- NOTE | 2020-05-01 11:36 | Consultation ---
History of Present Illness Consult date: 05/01/20 Consult reason: congestive heart failure History of present illness: This is a 39-year old woman who had a a week ago. She presents to this hospital with shortness of breath and coughs. There was also lower extremity edema and poorly characterized chest tightness. She denies fever. Chest x-ray is suspicious for pneumonia. Chest CTA reports low probability for PE. Patient is currently on isolation protocol for suspected coronavirus. A cardiology consultation has been requested for CHF. Patient denies a prior cardiac history and had no complications during her . Laboratory measurements shows a hgb at 9.3. There was also elevated LFTs. Cardiac iso- enzymes were normal. Her presenting ECG is normal. Further cardiac workup with an echocardiogram reports a normal left ventricular systolic function, ejection fraction 50-55%. Medications and Allergies Allergies Allergy/AdvReac Type Severity Reaction Status Date / Time No Known Allergies Allergy Unverified 04/30/20 12:41 Active Meds: Active Medications Acetaminophen (Tylenol) 650 mg PO Q4H PRN PRN Reason: Pain MILD(1-3)/Fever >100.5/STOVALL Aspirin (Aspirin) 325 mg PO QDAY [facility] Last Admin: 05/01/20 10:01 Dose: 325 mg Documented by: Enoxaparin Sodium (Enoxaparin) 40 mg SUB-Q Q12HR [facility]; Protocol Last Admin: 05/01/20 06:34 Dose: 40 mg Documented by: Famotidine (Pepcid) 20 mg PO BID [facility] Last Admin: 05/01/20 10:01 Dose: 20 mg Documented by: Furosemide (Lasix) 40 mg IV 0600,1800 [facility] Last Admin: 05/01/20 05:25 Dose: 40 mg Documented by: Hydromorphone HCl (Dilaudid) 0.5 mg IV Q3H PRN PRN Reason: Pain , Severe (7-10) Ondansetron HCl (Zofran) 4 mg IV Q8H PRN PRN Reason: Nausea And Vomiting Oxycodone/Acetaminophen (Percocet 5/325) 1 tab PO Q6H PRN PRN Reason: Pain, Moderate (4-6) Sodium Chloride (Sodium Chloride Flush Syringe 10 Ml) 10 ml IV BID [facility] Last Admin: 05/01/20 10:02 Dose: 10 ml Documented by: Sodium Chloride (Sodium Chloride Flush Syringe 10 Ml) 10 ml IV PRN PRN PRN Reason: LINE FLUSH Physical Examination Vital Signs Temp Pulse Resp BP Pulse Ox 98.8 F 54 L 20 144/73 98 04/30/20 08:33 04/30/20 08:33 04/30/20 08:33 04/30/20 08:33 04/30/20 08:33 Narrative exam: Deferred due to isolation protocol. Results 05/01/20 05:28 05/01/20 05:28 Cardiac Enzymes 04/30/20 05/01/20 Range/Units 12:35 05:28 AST 54 H 44 H (5-40) units/L Lactate Dehydrogenase 450 H (91-180) units/L CK-MB (CK-2) 2.3 (0.0-4.0) ng/mL Coagulation 04/30/20 Range/Units 10:54 PT 13.5 (12.2-14.9) Sec. INR 1.02 (0.87-1.13) APTT 28.9 (24.2-36.6) Sec. CBC 05/01/20 Range/Units 05:28 WBC 6.3 (4.5-11.0) K/mm3 RBC 3.45 L (3.65-5.03) M/mm3 Hgb 9.3 L (10.1-14.3) gm/dl Hct 28.1 L (30.3-42.9) % Plt Count 343 (140-440) K/mm3 Lymph # (Auto) 1.6 (1.2-5.4) K/mm3 Larue # (Auto) 0.4 (0.0-0.8) K/mm3 Eos # (Auto) 0.2 (0.0-0.4) K/mm3 Baso # (Auto) 0.0 (0.0-0.1) K/mm3 Comprehensive Metabolic Panel 04/30/20 04/30/20 05/01/20 Range/Units 09:19 12:35 05:28 Sodium 144 (137-145) mmol/L Potassium 4.0 (3.6-5.0) mmol/L Chloride 106.4 (98-107) mmol/L Carbon Dioxide 18 L 22 (22-30) mmol/L BUN 15 (7-17) mg/dL Creatinine 0.7 (0.6-1.2) mg/dL Glucose 83 90 (65-100) mg/dL Calcium 8.6 (8.4-10.2) mg/dL Direct Bilirubin < 0.2 (0-0.2) mg/dL Indirect Bilirubin 0.0 mg/dL AST 54 H 44 H (5-40) units/L ALT 99 H 94 H (7-56) units/L Alkaline Phosphatase 119 110 (35-129) units/L Total Protein 6.4 6.2 L (6.3-8.2) g/dL Albumin 3.1 L 3.1 L (3.9-5) g/dL Assessment and Plan Shortness of breath CXR suspicious for pneumonia. COVID-19 test is pending Echocardiogram reports a normal left ventricular systolic function, ejection fraction 50-55%. s/p 1 week ago No further cardiac workup indicated. Will follow a conservative cardiac approach.
[2020-05-02] MEDS: FUROSEMIDE 40 MG/4 ML INJ IV SCH (05:48)
[2020-05-02 06:36] VITALS: BP 136/60
--- NOTE | 2020-05-02 08:33 | Discharge Summary ---
Providers - Providers Date of Admission: 04/30/20 14:12 Date of discharge: 05/02/20 Attending physician: NYASIA PATEL 04/30/20 12:07 Consult to Physician [CONS] Urgent Comment: Consulting Provider: JOSY OJEDA Physician Instructions: Reason For Exam: post cardiomyopathy Primary care physician: [facility] Hospitalization Reason for admission: SOB Condition: Stable Hospital course: This is a 39-year old woman who had a a week ago presented to this hospital with shortness of breath and coughs. There was also lower extremity edema and poorly characterized chest tightness. She denied fever. However, chest x-ray is suspicious for pneumonia. Chest CTA reported low probability for PE. Patient was on isolation protocol for suspected coronavirus. However, COVID-19 testing was found to be negative. A cardiology consultation was requested for CHF/possible cardiomyopathy. Patient denied a prior cardiac history and had no complications during her . Laboratory measurements shows a hgb at 9.3. There was also elevated LFTs. Cardiac iso- enzymes were normal. Her presenting ECG was normal. Further cardiac workup with an echocardiogram reports a normal left ventricular systolic function, ejection fraction 50-55%. Cardiology felt that there was no evidence of cardiomyopathy or CHF and no further cardiac work-up indicated. Patient was felt to have probable pneumonia and was started on Rocephin. However, patient stated that she did not want to stay in hospital for IV antibiotics and opted for AMA discharge. Dedicated discharge time 35 minutes Disposition: [id number]-07 LEFT AGAINST MED ADVICE Time spent for discharge: 35 - Discharge Diagnoses (1) Pneumonia Status: Acute (2) Elevated d-dimer Status: Acute (3) Status post Status: Acute Core Measure Documentation - Palliative Care Palliative Care/ Comfort Measures: Not Applicable - Core Measures Any of the following diagnoses?: none Exam - Constitutional Vitals: Temp Pulse Resp BP Pulse Ox 98.5 F 54 L 20 136/60 98 05/02/20 05:43 05/02/20 05:43 05/02/20 05:43 05/02/20 05:43 05/02/20 05:43 General appearance: Present: no acute distress, well-nourished - EENT Eyes: Present: PERRL ENT: hearing intact, clear oral mucosa - Neck Neck: Present: supple, normal ROM - Respiratory Respiratory effort: normal Respiratory: bilateral: CTA - Cardiovascular Heart Sounds: Present: S1 & S2. Absent: rub, click - Extremities Extremities: pulses symmetrical, No edema Peripheral Pulses: within normal limits - Abdominal General gastrointestinal: Present: soft, non-tender, non-distended, normal bowel sounds Female genitourinary: Present: normal - Integumentary Integumentary: Present: clear, warm, dry - Musculoskeletal Musculoskeletal: gait normal, strength equal bilaterally - Psychiatric Psychiatric: appropriate mood/affect, intact judgment & insight - Neurologic Neurologic: CNII-XII intact, moves all extremities Plan Activity: advance as tolerated Weight Bearing Status: Weight Bear as Tolerated Diet: regular Follow up with: PRIMARY CARE, [Primary Care Provider] - 3-5 Days
[2020-05-02] MEDS ORDERED: cefTRIAXone/NS 1 GM/50 ML 1 GM/50 ML BAG IV SCH (10:00)
== END 2020-05-02 08:30 | disposition left against medical advice (07) ==
LOC: ED 08:28 → 3A 14:12 → INTOOBSV 14:12 → 3A 15:57
PROVIDERS: ADMIT Internal Medicine; ATTEND Hospitalist
DX: O90.3 Peripartum cardiomyopathy (principal); Z20.828 Contact with and (suspected) exposure to other viral communicable diseases; I50.41 Acute combined systolic (congestive) and diastolic (congestive) heart failure; D64.9 Anemia, unspecified; R74.8 Abnormal levels of other serum enzymes; E46 Unspecified protein-calorie malnutrition; R74.01 Elevation of levels of liver transaminase levels; Z79.82 Long term (current) use of aspirin; Z98.891 History of uterine scar from previous surgery; Z79.899 Other long term (current) drug therapy
CPT/HCPCS: 36415; 71045; 71275; 80048; 80053; 80074; 80076; 82550; 82553; 82728; 82947; 83036; 83550; 83615; 83735; 83880; 84145; 84484; 85025; 85379; 85610; 85730; 86140; 86850; 86900; 86901; 93005; 93306; 96372; 96374; 96376; 99285; G0378; J1650; J1940; Q9967; U0003; 85007